=== PATIENT | female | born 1960 | race Hispanic/Latino ===

== ENCOUNTER 2021-09-14 07:53 | Outpatient (CLI) | payer OTHER ==
[2021-09-14 10:02] LABS: #Basophils 0.1 10x3/uL (0.0-0.2); #Eosinphils 0.1 10x3/uL (0.0-0.5); #Monocytes 0.5 10x3/uL (0.0-1.1); #Neutrophils 3.1 10x3/uL (1.5-8.4); %Basophils 1.3 % (0.0-2.0); %Eosinophils 2.3 % (0.0-6.0); %Lymphocytes 27.9 % (18.0-47.0); %Monocytes 8.6 % (0.0-10.0); %Neutrophils 59.3 % (40.0-75.0); Mean Corpuscular HGB CONC 32.6 g/dL (32.0-36.0); Mean Corpuscular Hemoglobin 29.1 pg (27.0-33.0); Mean Corpuscular Volume 89.3 fl (81.6-98.3); Mean Platelet Volume 10.4 fl (7.4-10.4); Platelet Count 320 10x3/uL (150-450); RBC Distribution Width 12.3 % (11.5-14.5); Red Blood Cell (RBC) Count 4.47 10x6/uL (3.90-5.03); White Blood Cell (WBC) Count 5.2 10x3/uL (3.5-10.5)
[2021-09-14 10:18] LABS: INR-International Normal Ratio 0.9
[2021-09-14 10:27] LABS: Anion Gap 12 mmol/L (10-20); BUN (Urea Nitrogen) 13 mg/dL (9.8-20.1); Calc. Creatinine Clearance 0 mL/min (70-130); Calcium 9.8 mg/dL (7.8-10.44); Carbon Dioxide 27 mmol/L (23-31); Chloride 103 mmol/L (98-107); Glucose 199 mg/dL (80-115); Potassium 5.1 mmol/L (3.5-5.1); Sodium 137 mmol/L (136-145)
[2021-09-14 21:41] LABS: SARS-CoV-2 PCR by NAA Not Detected (NotDetected)
== END 2021-09-14 07:54 | disposition home or self-care (01) ==
LOC: LABBT 07:53
PROVIDERS: ATTEND Orthopaedic Surgery
DX: Z01.812 Encounter for preprocedural laboratory examination (principal); M17.11 Unilateral primary osteoarthritis, right knee; Z20.822 Contact with and (suspected) exposure to COVID-19
CPT/HCPCS: 80048; 85025; 85610; 87081; U0003; U0005

== ENCOUNTER 2021-09-19 06:35 | Observation (INO) | payer OTHER ==
[2021-09-15 10:38] VITALS: BMI 33.8
[2021-09-19] MEDS ORDERED: Tranexamic Acid 1,000 MG/10 ML VIAL ONE (06:51)
[2021-09-19] MEDS ORDERED: Sodium Chloride 0.9% 100 ML ONE (06:51)
[2021-09-19] MEDS ORDERED: Vancomycin HCl 1.5 GM in Sodium Chloride 0.9% 250 ML 300 ML IVPB SCH (07:00)
[2021-09-19] MEDS ORDERED: Midazolam HCl 2 mg/2 ml Vial ONE (08:10)
[2021-09-19] MEDS ORDERED: Fentanyl 100 MCG/2 ML VIAL ONE ×4 (08:10→12:56)
[2021-09-19] MEDS ORDERED: Ropivacaine 0.5% HCl/PF (150 MG/30 ML VIAL) ONE (08:11)
[2021-09-19] MEDS ORDERED: Fentanyl 100 MCG/2 ML VIAL SLOW IVP PRN (08:36)
[2021-09-19] MEDS ORDERED: Promethazine HCl 25 MG/ML VIAL IM PRN ×3 (08:45→11:29)
[2021-09-19] MEDS ORDERED: Ondansetron PF 4 MG/2 ML Vial IVP PRN ×2 (08:45→11:19)
[2021-09-19] MEDS ORDERED: Ropivacaine 0.2% 550 ML 550 ML NERVE BLCK SCH (08:45)
[2021-09-19] MEDS ORDERED: Zolpidem Tartrate 5 MG TAB PO PRN ×2 (08:45→11:19)
[2021-09-19] MEDS ORDERED: HYDROcodone/Acetaminophen 10/325 mg Tablet PO PRN (08:45)
[2021-09-19] MEDS ORDERED: traMADol HCl 50 MG TAB PO PRN ×2 (08:45)
[2021-09-19] MEDS ORDERED: Bupivacaine PF 0.5% 30 ML VIAL ONE (09:11)
[2021-09-19] MEDS ORDERED: fentaNYL Citrate/PF 100 MCG/2 ML SYRINGE ONE ×2 (09:23→10:21)
[2021-09-19] MEDS ORDERED: ceFAZolin (BATCH) 2 GM/100 ML BAG ONE ×3 (09:26→09:27)
[2021-09-19] MEDS ORDERED: Lidocaine 1% PF 5 ML VIAL ONE ×2 (09:41)
[2021-09-19] MEDS ORDERED: Dexamethasone 20 MG/5 ML VIAL ONE (09:41)
[2021-09-19] MEDS ORDERED: ePHEDrine 50 MG/ML VIAL ONE (09:41)
[2021-09-19] MEDS ORDERED: Ondansetron PF 4 MG/2 ML Vial ONE (09:41)
[2021-09-19] MEDS ORDERED: PROPOFOL 200 MG/20 ML VIAL ONE (09:41)
[2021-09-19] MEDS ORDERED: diphenhydrAMINE 25 MG CAP PO PRN (11:19)
[2021-09-19] MEDS ORDERED: Acetaminophen 325 MG TAB PO PRN (11:19)
[2021-09-19] MEDS ORDERED: Ondansetron HCl/PF 4 MG/2 ML Vial IVP PRN (11:29)
[2021-09-19] MEDS ORDERED: HYDROmorphone 2 MG/ML VIAL SLOW IVP PRN (11:29)
[2021-09-19] MEDS ORDERED: Promethazine HCl 25 MG/ML VIAL IVPB PRN (11:29)
[2021-09-19] MEDS ORDERED: HYDROmorphone 0.5 MG/0.5 ML SYRINGE ONE ×2 (11:46→12:07)
[2021-09-19] MEDS: Ketorolac Tromethamine 30 MG/ML VIAL IM SCH ×2 (14:19→21:01)
[2021-09-19] MEDS: HYDROcodone/Acetaminophen 10/325 mg Tablet PO PRN ×2 (14:20→18:08)
[2021-09-19] MEDS: Sodium Chloride 0.9% 1,000 ML IV SCH ×2 (14:21→21:52)
[2021-09-19] MEDS ORDERED: Dextrose 5% in Water 1,000 ML IV PRN (16:42)
[2021-09-19] MEDS ORDERED: Insulin Regular 300 UNITS/3 ML VIAL SC PRN ×2 (16:42)
[2021-09-19] MEDS ORDERED: Dextrose 50% Abboject 50 ML SYRINGE SLOW IVP PRN (16:42)
[2021-09-19 17:17] LABS: #Lymphocytes 0.6 thou/uL (1.20-3.40); #Monocytes 0.6 thou/uL (0.11-0.59); #Neutrophils 12.9 thou/uL (1.40-6.50); %Basophils 0.1 % (0.0-1.0); %Eosinophils 0.1 % (0.0-10.0); %Lymphocytes 4.1 % (21.0-51.0); %Monocytes 4.3 % (0.0-10.0); %Neutrophils 91.4 % (42.0-75.0); Hemoglobin 11.8 g/dL (12.0-16.0); Mean Corpuscular HGB CONC 32.8 g/dL (32.0-36.0); Mean Corpuscular Volume 91.2 fL (78.0-98.0); Mean Platelet Volume 7.5 fL (7.4-10.4); Platelet Count 291 thou/uL (130-400); RBC Distribution Width 11.8 % (11.5-14.5); Red Blood Cell (RBC) Count 3.94 mill/uL (4.20-5.40); White Blood Cell (WBC) Count 14.1 thou/uL (4.8-10.8)
[2021-09-19 17:33] LABS: Hemoglobin A1c 6.2 % (4.0-6.0)
[2021-09-19 17:37] LABS: Anion Gap 15 mmol/L (10-20); BUN (Urea Nitrogen) 11 mg/dL (9.8-20.1); Calc. Creatinine Clearance 92 mL/min (70-130); Calcium 8.6 mg/dL (7.8-10.44); Carbon Dioxide 23 mmol/L (23-31); Chloride 104 mmol/L (98-107); Glucose 309 mg/dL (80-115); Potassium 4.8 mmol/L (3.5-5.1); Sodium 137 mmol/L (136-145)
[2021-09-19] MEDS: ceFAZolin (BATCH) 2 GM in Premix Bag 1 BAG IVPB SCH (18:09)
[2021-09-19] MEDS: lamoTRIgine 100 MG TAB PO SCH (20:43)
[2021-09-19] MEDS: clonazePAM 0.5 MG TAB PO SCH (20:43)
[2021-09-19] MEDS: Senokot S 8.6-50 MG TAB PO SCH (20:43)
[2021-09-19] MEDS: Aspirin 81 mg Enteric Coated Tablet PO SCH (20:43)
[2021-09-19] MEDS: levETIRAcetam 500 MG TAB PO SCH (20:43)
[2021-09-19] MEDS: Ferrous Gluconate 324 MG TAB PO SCH (20:44)
[2021-09-19] MEDS ORDERED: Simvastatin 5 MG TAB PO SCH (21:00)
[2021-09-20] MEDS: ceFAZolin (BATCH) 2 GM in Premix Bag 1 BAG IVPB SCH (02:51)
[2021-09-20] MEDS: Ketorolac Tromethamine 30 MG/ML VIAL IM SCH (05:32)
[2021-09-20 05:55] LABS: #Eosinphils 0.1 thou/uL (0.0-0.7); #Lymphocytes 1.5 thou/uL (1.20-3.40); #Neutrophils 5.4 thou/uL (1.40-6.50); %Basophils 0.3 % (0.0-1.0); %Eosinophils 0.6 % (0.0-10.0); %Monocytes 12.6 % (0.0-10.0); %Neutrophils 67.5 % (42.0-75.0); Mean Corpuscular HGB CONC 33.7 g/dL (32.0-36.0); Mean Corpuscular Hemoglobin 30.9 pg (27.0-31.0); Mean Corpuscular Volume 91.6 fL (78.0-98.0); Mean Platelet Volume 7.3 fL (7.4-10.4); Platelet Count 255 thou/uL (130-400); RBC Distribution Width 11.6 % (11.5-14.5); Red Blood Cell (RBC) Count 3.24 mill/uL (4.20-5.40)
[2021-09-20] MEDS ORDERED: Levothyroxine Sodium 75 MCG TAB PO SCH (06:00)
[2021-09-20 06:16] LABS: Anion Gap 11 mmol/L (10-20); BUN (Urea Nitrogen) 11 mg/dL (9.8-20.1); Calc. Creatinine Clearance 109 mL/min (70-130); Calcium 8.5 mg/dL (7.8-10.44); Carbon Dioxide 25 mmol/L (23-31); Chloride 105 mmol/L (98-107); Glucose 119 mg/dL (80-115); Sodium 136 mmol/L (136-145)
[2021-09-20] MEDS: Sodium Chloride 0.9% 1,000 ML IV SCH (07:26)
[2021-09-20 07:38] VITALS: BP 100/65; TEMP 98.3
[2021-09-20] MEDS: clonazePAM 0.5 MG TAB PO SCH (08:08)
[2021-09-20] MEDS: Ferrous Gluconate 324 MG TAB PO SCH (08:08)
[2021-09-20] MEDS: Senokot S 8.6-50 MG TAB PO SCH (08:09)
[2021-09-20] MEDS: Aspirin 81 mg Enteric Coated Tablet PO SCH (08:09)
[2021-09-20] MEDS: lamoTRIgine 100 MG TAB PO SCH (08:09)
[2021-09-20] MEDS: levETIRAcetam 500 MG TAB PO SCH (08:09)
[2021-09-20] MEDS ORDERED: Furosemide 20 MG TAB PO SCH (09:00)
[2021-09-20] MEDS ORDERED: FLUoxetine HCl 20 MG CAP PO SCH (09:00)
[2021-09-20] MEDS ORDERED: Multivitamin W/ Minerals 1 TAB PO SCH (09:00)
== END 2021-09-20 11:42 | disposition home or self-care (01) ==
LOC: SDC 06:35 → SURG A 11:20 → SDC 13:00 → SURG A 13:36 → INTOOBSV 16:23 → OBSVTOIN 16:23
PROVIDERS: ADMIT Orthopaedic Surgery; ATTEND Orthopaedic Surgery
PROC: 0SRC0J9 Replacement of Right Knee Joint with Synthetic Substitute, Cemented, Open Approach (ICD-10-PCS; principal; 2021-09-19)
PROC: 8E0YXBZ Computer Assisted Procedure of Lower Extremity (ICD-10-PCS; 2021-09-19)
PROC: 3E0T3BZ Introduction of Anesthetic Agent into Peripheral Nerves and Plexi, Percutaneous Approach (ICD-10-PCS; 2021-09-19)
DX: M17.0 Bilateral primary osteoarthritis of knee (principal); M21.161 Varus deformity, not elsewhere classified, right knee; I10 Essential (primary) hypertension; E78.5 Hyperlipidemia, unspecified; I25.10 Atherosclerotic heart disease of native coronary artery without angina pectoris; G40.909 Epilepsy, unspecified, not intractable, without status epilepticus; E03.9 Hypothyroidism, unspecified; R73.9 Hyperglycemia, unspecified; E66.9 Obesity, unspecified; Z68.33 Body mass index [BMI] 33.0-33.9, adult; Z87.891 Personal history of nicotine dependence; Z79.890 Hormone replacement therapy; Z79.899 Other long term (current) drug therapy; Z88.8 Allergy status to other drugs, medicaments and biological substances
CPT/HCPCS: 20985; 27447; 64448; 73560; 80048 ×2; 82962 ×2; 83036; 85025 ×2; 97110; 97116 ×2; 97139 ×2; 97530 ×2; 98960; A4306; C1713; C1776; 36415; 36416; 96372; 96374; 96376; G0378; J0690; J1100; J1170; J1815; J1885; J2250; J2405; J2704; J2795; J3010; J3370; J3490; J7050; S0020

== ENCOUNTER 2023-07-17 11:25 | Outpatient (CLI) | payer OTHER ==
[2023-07-17 12:40] LABS: #Basophils 0.1 10x3/uL (0.0-0.2); #Eosinphils 0.2 10x3/uL (0.0-0.5); #Monocytes 0.6 10x3/uL (0.0-1.1); #Neutrophils 3.8 10x3/uL (1.5-8.4); %Basophils 1.2 % (0.0-2.0); %Eosinophils 3.1 % (0.0-6.0); %Lymphocytes 28.9 % (18.0-47.0); %Monocytes 8.4 % (0.0-10.0); %Neutrophils 58.1 % (40.0-75.0); Hematocrit 38.9 % (34.9-44.5); Hemoglobin 13.6 g/dL (12.0-15.5); Mean Corpuscular Volume 85.7 fl (81.6-98.3); Mean Platelet Volume 9.6 fl (7.4-10.4); Platelet Count 349 10x3/uL (150-450); RBC Distribution Width 12.3 % (11.5-14.5); Red Blood Cell (RBC) Count 4.54 10x6/uL (3.90-5.03); White Blood Cell (WBC) Count 6.5 10x3/uL (3.5-10.5)
[2023-07-17 12:42] LABS: Prothrombin Time 10.3 sec (9.5-12.1)
[2023-07-17 12:46] LABS: Anion Gap 15 mmol/L (10-20); BUN (Urea Nitrogen) 10 mg/dL (9.8-20.1); Calc. Creatinine Clearance 0 mL/min (70-130); Calcium 9.7 mg/dL (7.8-10.44); Carbon Dioxide 26 mmol/L (23-31); Chloride 100 mmol/L (98-107); Estimated GFR 91; Glucose 116 mg/dL (80-115); Potassium 4.7 mmol/L (3.5-5.1); Sodium 136 mmol/L (136-145)
== END 2023-07-17 11:26 | disposition home or self-care (01) ==
LOC: LABBT 11:25
PROVIDERS: ATTEND Orthopaedic Surgery
DX: Z01.818 Encounter for other preprocedural examination (principal); M17.12 Unilateral primary osteoarthritis, left knee
CPT/HCPCS: 80048; 85025; 85610; 87081; 93005; 93010

== ENCOUNTER 2023-07-24 05:34 | Observation (INO) | payer OTHER ==
[2023-07-17 12:25] VITALS: BMI 27.6
[2023-07-24] MEDS ORDERED: Vancomycin 1 GM/200 ML (FROZEN) BAG ONE (06:03)
[2023-07-24] MEDS ORDERED: Tranexamic Acid 1,000 MG/10 ML VIAL ONE (06:03)
[2023-07-24] MEDS ORDERED: Sodium Chloride 0.9% 100 ML ONE ×2 (06:03→06:55)
[2023-07-24] MEDS ORDERED: fentaNYL PF 100 MCG/2 ML SYRINGE ONE (06:24)
[2023-07-24] MEDS ORDERED: PROPOFOL 20 ML ONE ×3 (06:25→08:22)
[2023-07-24] MEDS ORDERED: Bupivacaine PF 0.5% 30 ML VIAL ONE ×2 (06:25→07:20)
[2023-07-24] MEDS ORDERED: Midazolam HCl 2 mg/2 ml Vial ONE (06:25)
[2023-07-24] MEDS ORDERED: CEFAZOLIN 2 GM VIAL ONE (06:55)
[2023-07-24] MEDS ORDERED: Acetaminophen 325 MG TAB PO PRN (06:57)
[2023-07-24] MEDS ORDERED: Promethazine HCl 25 MG/ML VIAL IM PRN ×3 (06:57→08:07)
[2023-07-24] MEDS ORDERED: diphenhydrAMINE 25 MG CAP PO PRN (06:57)
[2023-07-24] MEDS ORDERED: Zolpidem Tartrate 5 MG TAB PO PRN ×2 (06:57→07:15)
[2023-07-24] MEDS ORDERED: HYDROcodone/Acetaminophen 10/325 mg Tablet PO PRN ×3 (06:57→07:15)
[2023-07-24] MEDS ORDERED: Ondansetron PF 4 MG/2 ML Vial IVP PRN ×2 (06:57→07:15)
[2023-07-24] MEDS ORDERED: fentaNYL 50 mcg/mL 1 mL Vial SLOW IVP PRN ×3 (06:57→07:16)
[2023-07-24] MEDS ORDERED: traMADol HCl 50 MG TAB PO PRN (07:15)
[2023-07-24] MEDS ORDERED: Ropivacaine 0.2% 550 ML 550 ML NERVE BLCK SCH (07:15)
[2023-07-24] MEDS ORDERED: EPINEPHrine 1 MG/ML VIAL ONE (07:20)
[2023-07-24] MEDS ORDERED: ePHEDrine Sulfate 50 MG/10 ML VIAL ONE (07:30)
[2023-07-24] MEDS ORDERED: HYDROmorphone 2 MG/ML VIAL SLOW IVP PRN (08:07)
[2023-07-24] MEDS ORDERED: Ondansetron HCl/PF 4 MG/2 ML Vial IVP PRN (08:07)
[2023-07-24] MEDS ORDERED: PHENYLEPHRINE-NS 100 MCG/ML 10 ML SYRINGE ONE (08:14)
[2023-07-24] MEDS ORDERED: Phenylephrine 10 MG/ML VIAL ONE (08:22)
[2023-07-24] MEDS ORDERED: Non-Formulary Item 1 EACH (Lamotrigine [Lamotrigine] 200 MG Tablet) PO SCH (09:00)
[2023-07-24] MEDS ORDERED: Non-Formulary Item 1 EACH (Omeprazole [Omeprazole] 20 MG Tablet.Dr) PO SCH (09:00)
[2023-07-24] MEDS ORDERED: FLUoxetine HCl 20 MG CAP PO SCH (09:00)
[2023-07-24] MEDS ORDERED: Non-Formulary Item 1 EACH (Levetiracetam [Levetiracetam] 1,000 MG Tablet) PO SCH (09:00)
[2023-07-24] MEDS ORDERED: fentaNYL 50 mcg/mL 1 mL Vial ONE (12:03)
[2023-07-24] MEDS: Ketorolac Tromethamine 30 MG (1 mL) VIAL IVP SCH (13:14)
[2023-07-24] MEDS: traMADol HCl 50 MG TAB PO PRN (13:14)
[2023-07-24] MEDS: CEFAZOLIN 2 GM in Sodium Chloride 0.9% 100 ML IVPB SCH (13:15)
[2023-07-24] MEDS: Aspirin 81 mg Enteric Coated Tablet PO SCH (13:21)
[2023-07-24] MEDS: Sodium Chloride 0.9% 1,000 ML IV SCH (13:21)
[2023-07-24] MEDS: Ferrous Gluconate 324 MG TAB PO SCH (13:21)
[2023-07-24] MEDS: FLUoxetine HCl 10 MG CAP PO SCH (13:22)
[2023-07-24] MEDS: levETIRAcetam 500 MG TAB PO SCH (13:22)
[2023-07-24] MEDS: Multivitamin W/ Minerals 1 TAB PO SCH (13:22)
[2023-07-24] MEDS: Senokot S 8.6-50 MG TAB PO SCH (13:22)
[2023-07-24] MEDS: lamoTRIgine 100 MG TAB PO SCH (13:22)
[2023-07-24] MEDS: Levothyroxine Sodium 75 MCG TAB PO SCH (13:22)
[2023-07-24] MEDS ORDERED: Ketorolac Tromethamine 30 MG (1 mL) VIAL IVP SCH (14:00)
[2023-07-24] MEDS ORDERED: Non-Formulary Item 1 EACH (Lovastatin [Lovastatin] 10 MG Tablet) PO SCH (21:00)
[2023-07-24] MEDS: Simvastatin 5 MG TAB PO SCH (21:22)
[2023-07-25 06:35] LABS: Hematocrit 31.9 % (36.0-47.0); Hemoglobin 10.8 g/dL (12.0-16.0); Mean Corpuscular HGB CONC 33.9 g/dL (32.0-36.0); Mean Corpuscular Hemoglobin 29.8 pg (27.0-31.0); Mean Corpuscular Volume 88.1 fl (78.0-98.0); Mean Platelet Volume 9.7 fL (7.4-10.4); Platelet Count 271 10x3/uL (130-400); RBC Distribution Width 12.5 % (11.5-14.5); Red Blood Cell (RBC) Count 3.62 mill/uL (4.20-5.40); White Blood Cell (WBC) Count 8.1 10x3/uL (4.8-10.8)
[2023-07-25 09:15] VITALS: BP 128/71; TEMP 98.9
[2023-07-25] MEDS: HYDROcodone/Acetaminophen 10/325 mg Tablet PO PRN (12:06)
== END 2023-07-25 12:14 | disposition home or self-care (01) ==
LOC: SDC 05:34 → SURG B 08:00
PROVIDERS: ADMIT Orthopaedic Surgery; ATTEND Orthopaedic Surgery
PROC: 0SRD0JZ Replacement of Left Knee Joint with Synthetic Substitute, Open Approach (ICD-10-PCS; principal; 2023-07-24)
DX: M17.12 Unilateral primary osteoarthritis, left knee (principal); E03.9 Hypothyroidism, unspecified; F32.A Depression, unspecified; F41.9 Anxiety disorder, unspecified; G40.909 Epilepsy, unspecified, not intractable, without status epilepticus; Z96.651 Presence of right artificial knee joint; Z87.891 Personal history of nicotine dependence; Z79.899 Other long term (current) drug therapy; Z79.890 Hormone replacement therapy; Z88.8 Allergy status to other drugs, medicaments and biological substances
CPT/HCPCS: 27447; 73560; 85027; 97110 ×2; 97116 ×2; 97530; A4306; C1776; J0171; J3010; J3370; 36415; J0665; J1885; J2250; J2371; J2704; J2795; J3490; J7050